=== PATIENT | female | born 1945 | race Asian ===

== ENCOUNTER 2017-10-04 13:44 | Emergency (ER) | payer OTHER ==
[~2017-10-04] VITALS: Ht 160 cm; Wt 68.1 kg
[2017-10-04] MEDS ORDERED: BENADRYL25 MG PO (14:05)
[2017-10-04] MEDS ORDERED: PEPCID20 MG PO (14:05)
[2017-10-04 15:53] VITALS: BP 149/95
== END 2017-10-04 15:57 | disposition home or self-care (01) ==
LOC: EME 13:44
DX: L23.7 Allergic contact dermatitis due to plants, except food (principal); Z87.891 Personal history of nicotine dependence
CPT/HCPCS: 99281; 99284; J1100